=== PATIENT | male | born 1965 | race Caucasian/White ===

== ENCOUNTER 2017-06-23 18:18 | Emergency (ER) | payer MEDICARE, MEDICAID ==
[2017-06-23] MEDS ORDERED: TETRACAINE HCL 0.5% OPH SOLN 2 ML OD ONE (18:39)
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
[2017-06-23] MEDS ORDERED: ERYTHROMYCIN 0.5% OPH OINTMENT 3.5 GM (ER DISP) OP PRN (20:00)
[2017-06-23] MEDS ORDERED: KETOROLAC TROMETHAMINE 0.45% 4 DROP/0.4 ML DROPERETTE OD ONE (20:00)
[2017-06-23 20:33] VITALS: BP 138/85
== END 2017-06-23 20:32 | disposition home or self-care (01) ==
LOC: ER 18:18
DX: S05.01XA Injury of conjunctiva and corneal abrasion without foreign body, right eye, initial encounter (principal); T15.91XA Foreign body on external eye, part unspecified, right eye, initial encounter; X58.XXXA Exposure to other specified factors, initial encounter; Z87.891 Personal history of nicotine dependence
CPT/HCPCS: 99283; A9270 ×2

== ENCOUNTER 2017-08-10 14:27 | Emergency (ER) | payer MEDICARE, MEDICAID ==
[2017-08-10 14:34] VITALS: BP 135/75
[2017-08-10] MEDS ORDERED: PREDNISONE 20 MG TABLET PO ONE (15:06)
--- NOTE | 2017-08-10 15:13 | ER Document Report ---
ED Skin Rash/Insect Bite/Abscs - General Chief Complaint: Rash Stated Complaint: RASH Time Seen by Provider: 08/10/17 14:59 Mode of Arrival: Ambulatory Information source: Patient Notes: 52-year-old male presents to ED for poison ramila for both legs 3 days. He states the rash is getting worse and is become more more itchy. 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 TRAVEL OUTSIDE OF THE [place] IN LAST 30 DAYS: No - HPI Patient complains to provider of: Skin rash/lesion Onset: Other - Days 3 Onset/Duration: Worse Quality of pain: No pain Severity: None Pain Level: Denies Skin Character: Rash Quality of rash: Itchy Identify cause: Yes Other exposure: Poison ramila Exacerbated by: Other - Retching Relieved by: Denies Similar symptoms previously: Yes Recently seen / treated by doctor: No - Related Data Allergies/Adverse Reactions: cephalexin [From Keflex] Allergy (Verified 08/10/17 14:27) Past Medical History - General Information source: Patient - Social History Smoking Status: Former Smoker Cigarette use (# per day): No Chew tobacco use (# tins/day): No Smoking Education Provided: No Frequency of alcohol use: None Drug Abuse: None Occupation: Senior Writer Lives with: Family Family History: Reviewed & Not Pertinent Patient has suicidal ideation: No Patient has homicidal ideation: No - Past Medical History Cardiac Medical History: Reports: Hx Coronary Artery Disease, Hx Heart Attack, Hx Hypercholesterolemia, Hx Hypertension Pulmonary Medical History: Reports: Hx Asthma, Hx Bronchitis EENT Medical History: Reports: None Neurological Medical History: Reports: None Endocrine Medical History: Reports: Hx Diabetes Mellitus Type 2 Renal/ Medical History: Reports: None Malignancy Medical History: Reports None GI Medical History: Reports: Hx Colonoscopy, Hx Endoscopy, Other - Hernia ventral with multiple intestinal surgeries Musculoskeltal Medical History: Reports Hx Musculoskeletal Deformity Skin Medical History: Reports None Psychiatric Medical History: Reports: None Traumatic Medical History: Reports: None Infectious Medical History: Reports: None Past Surgical History: Reports: Hx Bowel Surgery - Multiple intestinal surgeries trying to repair a hernia and mesh insertion., Hx Herniorrhaphy - x5 Review of Systems - Review of Systems Constitutional: No symptoms reported EENT: No symptoms reported Cardiovascular: No symptoms reported Respiratory: No symptoms reported Gastrointestinal: No symptoms reported Genitourinary: No symptoms reported Male Genitourinary: No symptoms reported Musculoskeletal: No symptoms reported Skin: Rash - Both legs poison ramila Hematologic/Lymphatic: No symptoms reported Neurological/Psychological: No symptoms reported -: Yes All other systems reviewed and negative Physical Exam - Vital signs Vitals: Temp Pulse Resp BP Pulse Ox 98.1 F 109 H 20 135/75 H 97 08/10/17 14:33 08/10/17 14:33 08/10/17 14:33 08/10/17 14:33 08/10/17 14:33 Interpretation: Normal - General General appearance: Appears well, Alert - HEENT Head: Normocephalic, Atraumatic Eyes: Normal Pupils: PERRL - Respiratory Respiratory status: No respiratory distress Chest status: Nontender Breath sounds: Normal Chest palpation: Normal - Cardiovascular Rhythm: Regular Heart sounds: Normal auscultation Murmur: No - Abdominal Inspection: Normal Distension: No distension Bowel sounds: Normal Tenderness: Nontender Organomegaly: No organomegaly - Back Back: Normal, Nontender - Extremities General upper extremity: Normal inspection, Nontender, Normal color, Normal ROM , Normal temperature General lower extremity: Normal inspection, Nontender, Normal color, Normal ROM , Normal temperature, Normal weight bearing. No: Maxwell's sign - Neurological Neuro grossly intact: Yes Cognition: Normal Orientation: AAOx4 Tish Coma Scale Eye Opening: Spontaneous Tish Coma Scale Verbal: Oriented [place] Coma Scale Motor: Obeys Commands Tish Coma Scale Total: 15 Speech: Normal Motor strength normal: LUE, RUE, LLE, RLE Sensory: Normal - Psychological Associated symptoms: Normal affect, Normal mood - Skin Skin Temperature: Warm Skin Moisture: Dry Skin Color: Normal Location of irregularity: Extremities - Poison ramila to both lower legs Course - Vital Signs Vital signs: Temp Pulse Resp BP Pulse Ox 98.1 F 109 H 20 135/75 H 97 08/10/17 14:33 08/10/17 14:33 08/10/17 14:33 08/10/17 14:33 08/10/17 14:33 Discharge - Discharge Clinical Impression: Poison ramila HTN (hypertension) Qualifiers: Hypertension type: unspecified Qualified Code(s): I10 - Essential (primary) hypertension Condition: Stable Disposition: HOME, SELF-CARE Additional Instructions: Poison Ramila Poison ramila and poison oak can cause an itchy rash. This is called contact dermatitis. It's an allergy to an oil in the plant's leaves. The oil can be spread from clothing to skin, from pets to humans, or from one spot on the body to another. Washing thoroughly with soap immediately after exposure can prevent the rash. (Clothing should be washed as well.) If the oil is not removed, an itchy rash develops a few days after the exposure. Blisters may develop. Two to three weeks may be required for healing. Generally, treatment consists of: (1) an immediate thorough washing with soap to remove the oil, (2) application of a cortisone cream, and (3) antihistamines for itching. If the reaction is particularly severe, oral cortisone medicine may be required. If there are oozing areas, these can be soaked in epsom salts or Lee's solution. Call the doctor if the rash worsens despite treatment, or if signs of infection occur such as spreading redness, red streaks, swollen glands, swelling , or fever. STEROID MEDICATION: You have been given a medicine of the cortisone/steroid class. This medication is used to control inflammation or allergy. It is usually only given for a short period of time, until the acute process subsides. There are usually no side effects from short-term use of cortisone-like medications. Some persons feel an increased sense of well-being and are not sleepy at bedtime. Long-term use of cortisone medications is best avoided, unless required for a severe condition. If your condition does not remit, or relapses after the course of corticosteroid medication, you should consult your physician. ACID-SUPPRESSING MEDICATION: You have a prescription for medicine which reduces the stomach's secretion of acid. Examples include Zantac, Tagament, and Pepcid. These drugs are often used to allow healing of ulcers or esophagitis. They may be needed to prevent recurrence of ulcers in some patients, or to prevent damage from acid reflux in the esophagus. Take all medication as prescribed, even after the pain is gone. Regular antacids may be added as needed if you have symptoms while taking this medicine. These medications sometimes are prescribed for allergic reactions because they have anti-histaminic effects and relieve the rash and itching of the reaction. There are usually no side effects from this medication. But, in rare cases and particularly in the elderly, serious problems can occur. Contact your doctor if there is fever, rash, hallucinations, confusion, or unusual bruising. Contact your doctor at once if you develop lightheadedness, black or bloody stool, or bloody vomitus. ANTIHISTAMINES: An antihistamine has been given and/or prescribed to control your symptoms. Antihistamines are used for many reasons, including itching, watering eyes, runny nose, allergic swelling, hives, and insect stings. Antihistamines may cause drowsiness, especially with the first dose. Do not operate machinery or drive while under the effects of the medication. Other common side effects include dry mouth and eyes. In older persons, antihistamines can occasionally cause urinary retention, constipation, and trouble focusing the eyes. Do not combine the medication with alcohol, or with any other medication without talking to your doctor. USE OF DIPHENHYDRAMINE: The use of diphenhydramine (Benadryl) has been recommended to control allergic symptoms. The 25 mg strength is available over- the-counter, as well as the elixir. This antihistamine is used for many symptoms. It's useful for itching, watering eyes and nose, allergic swelling, hives, and insect stings. The medication can be repeated four times daily. Age Elixir (12.5 mg/tsp) 25 mg pill 2-3 yr 1/2 tsp 4-8 yr 1 tsp 9-14 yr 2 tsp one tab adult 1-2 tabs Antihistamines may cause drowsiness, especially with the first dose. Do not operate machinery or drive while under the effects of the medication. Do not combine the medication with alcohol, or with any other medication without talking to your doctor. FOLLOW-UP CARE: If you have been referred to a physician for follow-up care, call the physician s office for an appointment as you were instructed or within the next two days. If you experience worsening or a significant change in your symptoms, notify the physician immediately or return to the Emergency Department at any time for re-evaluation. Prescriptions: Famotidine [Pepcid 20 mg Tablet] 20 mg PO BID #12 tablet Prednisone [Deltasone 20 mg Tablet] 3 tab PO DAILY 5 Days tablet Forms: Elevated Blood Pressure, Return to Work Referrals: SHARAN TODD MD [Primary Care Provider] - Follow up as needed
== END 2017-08-10 15:32 | disposition home or self-care (01) ==
LOC: ER 14:27
DX: L23.7 Allergic contact dermatitis due to plants, except food (principal); I25.10 Atherosclerotic heart disease of native coronary artery without angina pectoris; I10 Essential (primary) hypertension; E11.9 Type 2 diabetes mellitus without complications; Z88.1 Allergy status to other antibiotic agents; Z87.891 Personal history of nicotine dependence
CPT/HCPCS: 99282; A9270; J7512

== ENCOUNTER 2017-08-29 22:21 | Emergency (ER) | payer OTHER, MEDICARE, MEDICAID ==
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
[2017-08-30] MEDS ORDERED: IBUPROFEN 800 MG TABLET PO ONE (00:19)
[2017-08-30] MEDS ORDERED: METHOCARBAMOL 750 MG TABLET PO ONE (00:43)
[2017-08-30] MEDS ORDERED: HYDROCODONE/ACETAMINOPHEN 5-325 MG TABLET PO ONE (00:44)
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
[2017-08-30] MEDS ORDERED: MORPHINE SULFATE SR 15 MG TABLET PO ONE (02:46)
[2017-08-30 05:10] VITALS: BP 122/88
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
== END 2017-08-30 05:00 | disposition home or self-care (01) ==
LOC: ER 22:21
DX: S16.1XXA Strain of muscle, fascia and tendon at neck level, initial encounter (principal); S46.912A Strain of unspecified muscle, fascia and tendon at shoulder and upper arm level, left arm, initial encounter; M54.2 Cervicalgia; M25.512 Pain in left shoulder; M25.532 Pain in left wrist; M54.9 Dorsalgia, unspecified; V49.40XA Driver injured in collision with unspecified motor vehicles in traffic accident, initial encounter; I25.10 Atherosclerotic heart disease of native coronary artery without angina pectoris; I10 Essential (primary) hypertension; E11.9 Type 2 diabetes mellitus without complications; J45.909 Unspecified asthma, uncomplicated; Z88.1 Allergy status to other antibiotic agents
CPT/HCPCS: 99283; 72040; 73030; 73110; J3490 ×2

== ENCOUNTER → 2018-03-30 | Outpatient (CLI) | payer MEDICARE ==
--- NOTE | 2018-03-30 14:46 | XCELERA REPORT ---
[address] [facility] [id number] Lower Extremity Venous Evaluation Procedure: Color flow and duplex imaging bilaterally of the veins of the lower extremities as well as the Common Femoral veins. Right Sided Venous Evaluation Normal vessel filling wall to wall, compression and augmentation as well as Colour flow down to the infrageniculate veins. Left Sided Venous Evaluation Normal vessel filling wall to wall, compression and augmentation as well as Colour flow down to the infrageniculate veins. Interpretation Summary No duplex evidence of DVT or obstruction in the bilateral lower extremities. Name: ZEINAB QUIROGA Age: 52 yrs Gender: Male : 1965 Patient Status: Outpatient Patient Location: RAD Study Date: 03/30/2018 02:11 PM Reason For Study: PAIN Ordering Physician: MEGHA KAYE Performed By: Jamie Horan : MEGHA KAYE > Deng Valdez
== END ==
LOC: RAD 13:24
PROVIDERS: ATTEND Physician Assistant
DX: M79.661 Pain in right lower leg (principal); M79.662 Pain in left lower leg
CPT/HCPCS: 93970

== ENCOUNTER → 2018-04-11 | Outpatient (CLI) | payer MEDICARE, MEDICAID ==
--- NOTE | 2018-04-12 08:57 | RADIOLOGY REPORT (SQ) ---
EXAM DESCRIPTION: MRI LUMBAR SPINE WITHOUT COMPLETED DATE/TIME: 04/11/2018 9:07 pm REASON FOR STUDY: M54.5 LOW BACK PAIN M54.5 LOW BACK PAIN COMPARISON: None. TECHNIQUE: Sagittal and Axial imaging includes T1, T2, STIR and gradient echo sequences. Coronal T2/ HASTE imaging. LIMITATIONS: None. FINDINGS: VISUALIZED UPPER ABDOMEN: Limited evaluation. No acute or suspicious findings suggested. SEGMENTATION: No transitional anatomy. The lowest well-developed disc space is labeled L5-S1. ALIGNMENT: Mild convex left scoliotic curve. VERTEBRAE: Intact. BONE MARROW: No fracture or bone lesion. No marrow edema. Mild sclerosis in the upper S1 endplate l ikely related to a chronic Schmorl's node. DISC SIGNAL: Normal. No significant abnormal signal or loss of height. POSTERIOR ELEMENTS: No pars defect. Mild facet arthropathy without bulky overgrowth. HARDWARE: None in the spine. CORD AND CONUS: Normal in size and signal intensity. Conus at the appropriate level. SOFT TISSUES: No aortic aneurysm seen. No bulky retroperitoneal adenopathy or mass. No paraspinal mas s or fluid. L1-L2: No significant spinal stenosis or exit foraminal stenosis. L2-L3: No significant spinal stenosis or exit foraminal stenosis. L3-L4: No significant spinal stenosis or exit foraminal stenosis. L4-L5: Mild facet hypertrophy. Minimal central narrowing. No high-grade stenosis. L5-S1: Small left paracentral protrusion with associated osteophytes contacts but does not displace t he left S1 nerve root. No significant central stenosis. No high-grade foraminal narrowing. LOWER THORACIC: Incompletely imaged. No stenosis seen. SACRUM: Visualized upper sacrum intact. OTHER: No other significant findings. IMPRESSION: 1. Mild spondylosis. Includes a small disc osteophyte complex left paracentral at the L5-S1 level. This contacts but does not exert clear mass effect on the left S1 nerve root. 2. No high-grade stenosis. Minimal scoliotic curve. Alignment otherwise normal. TECHNICAL DOCUMENTATION: JOB ID: [id number] [employer]- All Rights Reserved Reading location - IP/workstation name: [email or web address]
== END ==
LOC: RAD 20:19
PROVIDERS: ATTEND Physician Assistant
DX: M54.5 Low back pain (principal); M47.896 Other spondylosis, lumbar region
CPT/HCPCS: 72148

== ENCOUNTER 2018-11-26 03:01 | Emergency (ER) | payer MEDICARE, MEDICAID ==
[2018-11-26 03:26] VITALS: BP 173/95
[2018-11-26] MEDS ORDERED: POLYMYXIN B SULFATE/TMP OPH SOLN (10 ML/ER DISP) OS ONE (04:34)
[2018-11-26] MEDS ORDERED: DOXYCYCLINE HYCLATE 100 MG TABLET PO ONE (04:45)
--- NOTE | 2018-11-26 06:14 | ER Document Report ---
ED ENT - General Chief Complaint: Foreign Body in Eye Stated Complaint: METAL OR RUST IN LEFT EYE Time Seen by Provider: 11/26/18 04:18 Primary Care Provider: MEGHA KAYE PA [Primary Care Provider] - Follow up as needed Notes: Patient is a 53-year-old male that comes to the emergency department for chief complaint of left eye irritation and discomfort. He states that about 3 days ago he felt like he got a piece of metal in his eye, he states that he tried to rinse out and then he has been rubbing his eye, he states now he is starting to get redness to his eye, redness to the eyelids, and he has had not had discharge when he has had more tears. He does not report particular pain to the eye, just irritation. He denies visual loss, foreign body sensation, but the eye is persistently irritated. He wears glasses but not contacts. He is a diabetic. He denies any other complaints. TRAVEL OUTSIDE OF THE [place] IN LAST 30 DAYS: No - Related Data Allergies/Adverse Reactions: cephalexin [From Keflex] Allergy (Verified 08/30/17 03:30) Past Medical History - General Information source: Patient - Social History Smoking Status: Never Smoker Chew tobacco use (# tins/day): No Drug Abuse: None Lives with: Family Family History: Reviewed & Not Pertinent Patient has suicidal ideation: No Patient has homicidal ideation: No - Past Medical History Cardiac Medical History: Reports: Hx Coronary Artery Disease, Hx Heart Attack, Hx Hypercholesterolemia, Hx Hypertension Pulmonary Medical History: Reports: Hx Asthma, Hx Bronchitis Endocrine Medical History: Reports: Hx Diabetes Mellitus Type 2 Renal/ Medical History: Denies: Hx Peritoneal Dialysis GI Medical History: Reports: Hx Colonoscopy, Hx Endoscopy Musculoskeletal Medical History: Reports Hx Musculoskeletal Deformity Past Surgical History: Reports: Hx Bowel Surgery - Multiple intestinal surgeries trying to repair a hernia and mesh insertion., Hx Herniorrhaphy - x5 - Immunizations Immunizations up to date: Yes Hx Diphtheria, Pertussis, Tetanus Vaccination: Yes Review of Systems - Review of Systems Constitutional: No symptoms reported EENT: See HPI Cardiovascular: No symptoms reported Respiratory: No symptoms reported Gastrointestinal: No symptoms reported Genitourinary: No symptoms reported Male Genitourinary: No symptoms reported Musculoskeletal: No symptoms reported Skin: No symptoms reported Hematologic/Lymphatic: No symptoms reported Neurological/Psychological: No symptoms reported Physical Exam - Vital signs Vitals: Temp Pulse Resp BP Pulse Ox 97.7 F 98 18 173/95 H 96 11/26/18 03:11/26/18 03:11/26/18 03:11/26/18 03:11/26/18 03:26 - Notes Notes: GENERAL: Alert, interacts well. No acute distress. HEAD: Normocephalic, atraumatic. EYES: Pupils equal, round, and reactive to light. Extraocular movements intact. Sclera of the left eye is generally injected. No discharge. No superficial foreign body, no fluorescein uptake, negative Stef sign. Eyelids are erythematous, area around the left eye is also minimally erythematous but there is no significant heat, tenderness, or other abnormality noted. No dendrites. ENT: Oral mucosa moist, tongue midline. Oropharynx unremarkable. Airway patent. Nares patent, no nasal septal hematoma, TM's intact. NECK: Full range of motion. Supple. Trachea midline. LUNGS: Clear to auscultation bilaterally, no wheezes, rales, or rhonchi. No respiratory distress. HEART: Regular rate and rhythm. No murmur ABDOMEN: Soft, non-tender. Non-distended. Bowel sounds present in all 4 quadrants. GENITOURINARY: Deferred EXTREMITIES: Moves all 4 extremities spontaneously. No edema, normal radial and dorsalis pedis pulses bilaterally. No cyanosis. BACK: no cervical, thoracic, lumbar midline tenderness. No saddle anesthesia, normal distal neurovascular exam. Moves all extremities in full range of motion. NEUROLOGICAL: Alert and oriented x3. Normal speech. Cranial nerves II through XII grossly intact. PSYCH: Normal affect, normal mood. SKIN: Warm, dry, normal turgor. No rashes or lesions noted. Course - Re-evaluation Re-evalutation: Examination with the palacios and slit-lamp do not show foreign body, corneal abrasion, or concerning finding. Patient does have conjunctivitis, he has redness of the eye lids of the left eye and some minimal erythema around the eye suggesting possible early mild cellulitis but patient does not have any significant pain to the area and his EOMs are intact. He is a diabetic. He will be covered with both Polytrim eyedrops and doxycycline (he is allergic to cephalexin). I discussed close follow-up and return precautions in detail. Patient states understanding and agreement. Stable at time of discharge. - Vital Signs Vital signs: Temp Pulse Resp BP Pulse Ox 97.7 F 98 18 173/95 H 96 11/26/18 03:26 11/26/18 03:26 11/26/18 03:26 11/26/18 03:11/26/18 03:26 Discharge - Discharge Clinical Impression: Left eye pain Condition: Stable Disposition: HOME, SELF-CARE Additional Instructions: There is no foreign body or scratch seen, however there appears to be conjunctivitis and inflammation of the eyelids and skin around the eye now. We are treating for suspected early cellulitis and conjunctivitis. Take the doxycycline as prescribed, take the drops as prescribed 1 drop 4 times a day for 7 days. Follow-up with the ophthalmology referral closely for additional management. Return if you worsen including developing or spreading redness, loss of vision, developing pain or pain with moving your eyes, fever, or any others concerning symptoms. Prescriptions: Doxycycline Hyclate 100 mg PO BID #14 capsule Polymyxin B Sulfate/Tmp [Polytrim Oph Soln 10 ml] 1 dose OP ASDIR PRN #1 bottle PRN Reason: Referrals: LEAH VILLA DO [ACTIVE STAFF] - 11/28/18
== END 2018-11-26 04:53 | disposition home or self-care (01) ==
LOC: ER 03:01
DX: H57.12 Ocular pain, left eye (principal); T15.92XA Foreign body on external eye, part unspecified, left eye, initial encounter; I25.10 Atherosclerotic heart disease of native coronary artery without angina pectoris; I10 Essential (primary) hypertension; J45.909 Unspecified asthma, uncomplicated; E11.9 Type 2 diabetes mellitus without complications
CPT/HCPCS: 99283; A9270; J3490